=== PATIENT | male | born 1960 | race Caucasian/White ===

== ENCOUNTER 2019-06-16 10:30 | Outpatient (REF) | payer OTHER, SELFPAY ==
[2019-06-16 20:00] LABS: Anion Gap 8.3 mmol/L (3-11); BUN 14 mg/dL (7-18); CO2 28.7 mmol/L (21.0-32.0); CREATININE 1.12 mg/dL (0.70-1.30); Calculated LDL 100 mg/dL; Chloride 104 mmol/L (98-107); Cholesterol 161 mg/dL (50-200); Glucose 101 mg/dL (70-100); HDL Cholesterol 49 mg/dL (40-60); Potassium 4.4 mmol/L (3.5-5.1); Sodium 141 mmol/L (136-145); Triglyceride 60 mg/dL (30-150)
== END 2019-06-16 10:50 ==
LOC: NCHCN 10:30
PROVIDERS: PCP Family Medicine; Visit Provider Family Medicine
DX: I10 Essential (primary) hypertension (principal); Z00.00 Encounter for general adult medical examination without abnormal findings
CPT/HCPCS: 80048; 80061

== ENCOUNTER 2020-05-17 17:41 | Outpatient (REF) | payer OTHER, SELFPAY ==
[2020-05-17 18:45] LABS: Anion Gap 6.9 mmol/L (3-11); BUN 16 mg/dL (7-18); CO2 29.1 mmol/L (21.0-32.0); CREATININE 1.18 mg/dL (0.70-1.30); Chloride 103 mmol/L (98-107); Glucose 105 mg/dL (74-106); Potassium 4.5 mmol/L (3.5-5.1); Sodium 139 mmol/L (136-145)
== END 2020-05-17 18:01 ==
LOC: NCHCN 17:41
PROVIDERS: PCP Family Medicine; Visit Provider Family Medicine
DX: I10 Essential (primary) hypertension (principal)
CPT/HCPCS: 80048

== ENCOUNTER 2020-05-25 11:55 | Outpatient (CLI) | payer OTHER, SELFPAY ==
--- NOTE | 2020-05-25 10:24 | DI.RAD_ITS ---
EXAM: XR KNEE RT 3V AP,LAT,OLIVIER CLINICAL HISTORY: RT KNEE PAIN M25.561. TECHNIQUE: 2D digital imaging was performed. COMPARISON: No exams were available for comparison FINDINGS: BONES: No acute fracture is present. No bony destructive lesion is seen. JOINTS: The knee is normally aligned. No joint effusion is seen. SOFT TISSUE: Normal. IMPRESSION: Unremarkable radiographs of the right knee. DATA REPOSITORY: RADIATION DOSE DELIVERED:
== END 2020-05-25 12:15 ==
PROVIDERS: PCP Family Medicine; Visit Provider Family Medicine
DX: M25.561 Pain in right knee (principal)
CPT/HCPCS: 73562

== ENCOUNTER 2021-09-22 13:18 | Outpatient (REF) | payer OTHER, SELFPAY ==
[2021-09-22 15:17] LABS: Anion Gap 5.5 mmol/L (3-11); BUN 13 mg/dL (7-18); CO2 28.5 mmol/L (21.0-32.0); CREATININE 1.1 mg/dL (0.70-1.30); Calcium 9.1 mg/dL (8.5-10.1); Chloride 107 mmol/L (98-107); Glucose 94 mg/dL (74-106); Potassium 4.7 mmol/L (3.5-5.1); Sodium 141 mmol/L (136-145)
== END 2021-09-22 13:19 | disposition home or self-care (01) ==
LOC: NCHCN 13:18
PROVIDERS: PCP Family Medicine; Visit Provider Family Medicine
DX: Z00.00 Encounter for general adult medical examination without abnormal findings (principal); I10 Essential (primary) hypertension
CPT/HCPCS: 80048

== ENCOUNTER 2022-04-17 21:36 | Emergency (ER) | payer OTHER, SELFPAY ==
[2022-04-17] VITALS (17 sets, daily range): BP systolic 123–177; BP diastolic 79–96; PULSE 71–103; RESP 7–23; TEMP 36.7; O2SAT 98
--- NOTE | 2022-04-17 21:30 | RT.EKG_ITS ---
APPROVED REPORT Exam: Resting ECG Reason for Exam: chest pain Patient Location: E HR:101 bpm ECG Measurements Heart Rate 101 AXIS LA 214 P 55 QRSd 86 QRS 22 QT 341 T 41 QTc 442 Conclusion Sinus tachycardia...rate> 99 Borderline prolonged LA interval...LA >207, V-rate 91-120 Physician: no stemi, unchanged, Q wave in III unchanged
[2022-04-17] MEDS: Aspirin 81 MG CHEW 324 MG CH (22:08)
[2022-04-17 22:15] LABS: Abs Immature Grans 0.02 10^3/uL (0.0-0.06); Absolute Basophil Count 0.04 10^3/uL (0.0-0.2); Absolute Eosinophil Count 0.05 10^3/uL (0.0-0.7); Absolute Lymphocyte Count 2.28 10^3/uL (1.2-3.4); Absolute Monocyte Count 0.63 10^3/uL (0.1-0.8); Absolute Neutrophil Count 6.86 10^3/uL (1.2-6.7); Basophils % 0.4; Eosinophils % 0.5; HCT 41.8 % (40.0-50.0); HGB 14.9 g/dL (13.5-17.5); Immature Grans % 0.2; Lymphocytes % 23.1; MCHC 35.6 % (32.0-36.0); MCV 84 fL (80-95); MPV 9.7 fL (8.0-11.0); Monocytes % 6.4; Neutrophils % 69.4; Platelet Count 232 10^3/uL (130-400); RBC 4.97 10^6/uL (4.36-5.78); RDW 12.1 % (11.8-14.1); WBC 9.88 10^3/uL (4.4-10.8)
[2022-04-17 22:45] LABS: ALT 29 U/L (16-63); AST 23 U/L (15-37); Alkaline Phosphatase 77 U/L (46-116); Anion Gap 4.7 mmol/L (3-11); BUN 16 mg/dL (7-18); Bilirubin, Total 0.4 mg/dL (0.2-1.0); CO2 30.3 mmol/L (21.0-32.0); CREATININE 1.3 mg/dL (0.70-1.30); Calcium 8.8 mg/dL (8.5-10.1); Chloride 105 mmol/L (98-107); Estimated GFR 61.35 (mL/min/1.73m2); Glucose 155 mg/dL (74-106); NT-proBNP 96 pg/mL (<300); Potassium 3.7 mmol/L (3.5-5.1); Sodium 140 mmol/L (136-145); Total Protein 7.7 g/dL (6.4-8.2); Troponin I < 50 ng/L (<or=60)
--- NOTE | 2022-04-17 22:52 | W.ED.GENAD ---
Discharge Plan Disposition Patient Disposition: HOME Condition: Good Discharge Details Clinical Impression: Chest pain, Muscle spasm, Acid reflux Primary Care Provider: Alex Barahona ED Provider: Jordan Franz Home Meds and New Rx's Prescriptions: New pantoprazole [Protonix] 40 mg tablet,delayed release (DR/EC) 40 mg PO DAILY Qty: 30 0RF No Action acyclovir 15 GM ointment 15 gm Topical Q4H PRN PRNQty: 1 Label Comments: not using pravastatin 20 MG tablet 20 mg PO HS Qty: 90 Therapeutic Massage 1 hr Miscellaneous Monthly Qty: 1 12RF Rx Instructions: For stress reduction as part of medical management of high blood pressure losartan 50 mg Tablet 50 mg PO HS atenolol 25 mg Tablet 12.5 mg PO DAILY amlodipine 5 mg Tablet 5 mg PO HS Discharge Instructions Instructions: Chest Pain (ED), GERD (Gastroesophageal Reflux Disease) (ED), Muscle Spasm (ED) Additional Instructions: At this time your symptoms appear consistent with reflux, as well as a spasm in your back which may be related to reflux. Thankfully there is no evidence of significant cardiac abnormality on your work-up at this time. Please follow-up closely with your primary care provider Dr. Corea. Please take the Protonix as directed. Please get the massage that you normally do on your back for the spasm. Further discussion with Dr. Corea about a stress test would be beneficial. If you notice any worsening of your symptoms, or any new symptoms such as vomiting, diarrhea, fever, chills, shortness of breath, chest pain, numbness, weakness, or fainting , please return immediately to the emergency department for reevaluation. Please follow up with your primary care provider as soon as possible for reassessment and reevaluation. As always, it was a pleasure participating in your medical care today. Referrals: Alex Barahona [Primary Care Provider] - Medical Decision Making 62-year-old male with a past medical history of hypertension, high cholesterol, and family history of cardiac disease, who presents today for chest pain. Patient states that for the last 2 to 3 weeks he has had some achiness over his left back and chest. It is coming gone, it is sharp and achy when it occurs. It is nonexertional. It is improved by moving, exerting himself, and stretching. It does not appear to be worsened by anything. However today he noticed some increased reflux, and then his left shoulder started feeling slightly tingly. He denies any tearing or ripping sensation. He denies any trauma. He denies having symptoms like this otherwise in the past. He denies any other complaints at this time. No headache, no shortness of breath. He does admit to mild pain with deep breath. Denies PE risk factors such as recent long car rides, immobilization, recent surgery, prior history of DVT or PE, family history of PE or DVT, morbid obesity, exogenous estrogen and smoking, hemoptysis, history of cancer. No other complaints at this time. No other modifying factors. Exam demonstrates a well-appearing male. No evidence of significant distress. Mild tachycardia at 103 which is slightly unexpected. Exam of his back demonstrates a notable levator scapulae spasm. No other significant abnormality. That is seeming to be the location of his chest pain. No tenderness over the shoulders or arm. No focal neurologic deficits. Symptoms appear to unlikely to be ACS, however because of his risk factors we will evaluate for these. Screening EKG shows no evidence of STEMI or ACS or significant abnormality for that matter. PE is on the differential but less likely. We will get a D-dimer. Will monitor closely and treat with aspirin, and reassess. 12:42 AM On reassessment the patient's pain is resolved. He feels well. Chest x-ray is unremarkable, dimer is normal, troponin is normal, EKG is benign. No evidence of STEMI whatsoever. Symptoms appear consistent with GERD/reflux/muscle spasm, and appear inconsistent with PE ACS or dissection. However with the patient's history, and risk factors although they are low, I do feel that further discussion on a nonemergent basis for an outpatient stress test is reasonable with his PCP. Patient understands this. In the meantime we will start the patient on protonic, he does have a scheduled massage coming up, we discussed red flags which to return. Recommend avoidance of spicy foods. I have extensively reviewed the treatment plan and discharge instructions with the patient. I have addressed all patient concerns at this time. The patient was made aware of what symptoms to monitor for that would warrant a return to the emergency department. Discussed the plan with the patient, they demonstrate verbal understanding and agreement with our assessment and plan at this time. The documentation in this chart was dictated using [employer] dictation software. Please excuse any dictation errors. FINDINGS: Lungs: Unremarkable. No consolidation. Pleural spaces: Unremarkable. No pleural effusion. No pneumothorax. Heart/Mediastinum: Unremarkable. No cardiomegaly. Bones/joints: Unremarkable. IMPRESSION: No acute findings. Thank you for allowing us to participate in the care of your patient. Dictated and Authenticated by: Annie Joel MD 04/18/2022 12:12 AM Eastern Time ([place] & [place]) HPI General Date/Time Provider Initiated Documentation: 04/17/22 21:41. HPI Narrative: 62-year-old male with a past medical history of hypertension, high cholesterol, and family history of cardiac disease, who presents today for chest pain. Patient states that for the last 2 to 3 weeks he has had some achiness over his left back and chest. It is coming gone, it is sharp and achy when it occurs. It is nonexertional. It is improved by moving, exerting himself, and stretching. It does not appear to be worsened by anything. However today he noticed some increased reflux, and then his left shoulder started feeling slightly tingly. He denies any tearing or ripping sensation. He denies any trauma. He denies having symptoms like this otherwise in the past. He denies any other complaints at this time. No headache, no shortness of breath. He does admit to mild pain with deep breath. Denies PE risk factors such as recent long car rides, immobilization, recent surgery, prior history of DVT or PE, family history of PE or DVT, morbid obesity, exogenous estrogen and smoking, hemoptysis, history of cancer. No other complaints at this time. No other modifying factors. Related Data Home Medications Medication Instructions Recorded Confirmed acyclovir 5 % topical ointment 15 gm topical Q4H PRN PRN #1 tube 10/26/13 04/17/22 pravastatin 20 mg tablet 20 mg PO HS #90 tab-caps 11/10/15 04/17/22 amlodipine 5 mg tablet 5 mg PO HS 04/17/22 04/17/22 atenolol 25 mg tablet 12.5 mg PO DAILY 04/17/22 04/17/22 losartan 50 mg tablet 50 mg PO HS 04/17/22 04/17/22 pantoprazole 40 mg tablet,delayed 40 mg PO DAILY #30 tabs 04/18/22 release (Protonix) Previous Rx's Medication Instructions Recorded pantoprazole 40 mg tablet,delayed 40 mg PO DAILY #30 tabs 04/18/22 release (Protonix) Allergies Allergy/AdvReac Type Severity Reaction Status Date / Time lisinopril AdvReac Intermediate significant Unverified 04/17/22 22:11 arm pain animal dander Allergy Uncoded 04/17/22 22:11 General Stated Complaint: Chest Pain JUWAN: 3 Review of Systems All systems reviewed & are unremarkable except as noted in HPI and below PFSH All Active Problems (Updated 04/18/22 @ 00:38 by Jordan Franz DO) Chest pain (Acute) Muscle spasm (Acute) Acid reflux (Chronic) Chondromalacia patellae of right knee (Acute) Surgical History Colonoscopy - MAC Family History Mother Essential hypertension Father , CAD at age 67. Essential hypertension Heart disease CABG Myocardial infarction Brother Essential hypertension Heart disease Hyperlipidemia Brother No problems noted. Grandfather No problems noted. Grandfather No problems noted. Grandmother No problems noted. Grandmother No problems noted. Brother No problems noted. Social History Smoking/Tobacco Use Status: Never Smoking risk assessment performed?: Yes Drug use: Rarely Substance use type: marijuana Details: Edibles Do you feel safe in your relationship?: Yes Exam Narrative Exam Narrative: 1.Const: Well-nourished, Well-developed, appearing stated age 2.Eyes: PERRL, no conjunctival injection, and symmetrical lids. 3.ENT: Atraumatic external nose and ears. Moist MM. Neck: Symmetric, trachea midline, No thyromegaly. 4.CVS: +S1/S2, No murmurs or gallops. Peripheral pulses 2+ and equal in all extremities. Brisk capillary refill in all extremities. 5.RESP: Unlabored respiratory effort. Clear to auscultation bilaterally. No wheezes rales or rhonchi 6.GI: Soft, Nontender/Nondistended, No hepatosplenomegaly. No guarding or rebound. 7.MSK: Normocephalic/Atraumatic, Extremities w/o deformity or ttp No cyanosis or clubbing, Normal movement of all extremities. No calf tenderness 8.Skin: Warm, Dry. No rashes or lesions. 9.Neuro: dental biller II-XII grossly intact. Sensation grossly intact, no focal neurologic deficits. 10.Psych: (AAO) x3. Appropriate mood and affect Course Vital Signs Vital signs: Vital Signs Temperature 36.7 C 04/17/22 21:41 Pulse 103 H 04/17/22 21:41 Respiratory Rate 13 04/17/22 21:41 Blood Pressure 177/96 H 04/17/22 21:41 Pulse Oximetry 98 04/17/22 21:41 Temperature 36.7 C 04/17/22 21:41 Temperature Source Temporal Artery Scan 04/17/22 21:41 Pulse 103 H 04/17/22 21:41 Respiratory Rate 23 04/17/22 21:47 Respiratory Effort Non-Labored 04/17/22 21:47 Respiratory Depth Normal 04/17/22 21:47 Respiratory Pattern Normal 04/17/22 21:47 Blood Pressure 177/96 H 04/17/22 21:41 Blood Pressure Position Sitting 04/17/22 21:41 Pulse Oximetry 98 04/17/22 21:41 Oxygen Delivery Method Room Air 04/17/22 21:41 Oxygen Flow Rate 0 04/17/22 21:41 Lab/Test Results Lab/Test Results: Laboratory Tests Range/Units 04/17/22 04/17/22 22:10 22:10 WBC (4.4-10.8) 10^3/uL 9.88 RBC (4.36-5.78) 10^6/uL 4.97 Hgb (13.5-17.5) g/dL 14.9 Hct (40.0-50.0) % 41.8 MCV (80-95) fL 84 MCH (27.0-33.0) pg 30.0 MCHC (32.0-36.0) % 35.6 RDW (11.8-14.1) % 12.1 Plt Count (130-400) 10^3/uL 232 MPV (8.0-11.0) fL 9.7 Immature Gran % 0.2 Neutrophils % 69.4 Lymphocytes % 23.1 Monocytes % 6.4 Eosinophils % 0.5 Basophils % 0.4 Nucleated RBC % (0.0-0.3) % 0.0 Absolute Neutrophils (1.2-6.7) 10^3/uL 6.86 H Absolute Lymphocytes (1.2-3.4) 10^3/uL 2.28 Absolute Monocytes (0.1-0.8) 10^3/uL 0.63 Absolute Eosinophils (0.0-0.7) 10^3/uL 0.05 Absolute Basophils (0.0-0.2) 10^3/uL 0.04 Sodium (136-145) mmol/L 140 Potassium (3.5-5.1) mmol/L 3.7 Chloride (98-107) mmol/L 105 Carbon Dioxide (21.0-32.0) mmol/L 30.3 Anion Gap (3-11) mmol/L 4.7 BUN (7-18) mg/dL 16 Creatinine (0.70-1.30) mg/dL 1.3 Est GFR (CKD-EPI 2020) (mL/min/1.73m2) 61.35 Glucose (74-106) mg/dL 155 H Calcium (8.5-10.1) mg/dL 8.8 Total Bilirubin (0.2-1.0) mg/dL 0.4 AST (15-37) U/L 23 ALT (16-63) U/L 29 Alkaline Phosphatase (46-116) U/L 77 Troponin I (<or=60) ng/L < 50 NT-Pro-B Natriuret Pep (<300) pg/mL 96 Total Protein (6.4-8.2) g/dL 7.7 Albumin (3.4-5.0) g/dL 4.0 PAWSS Have you Been Recently Intoxicated or Drunk Within the Last 30 days?: No Have you Ever Experienced Previous Episodes of Alcohol Withdrawal?: No Have you ever Experienced Withdrawal Seizures?: No Have you ever Experienced Delirium Tremens(DT)s?: No Have you ever undergone Alcohol Rehabilitation Treatment (i.e, inpt ot outpatient treatment programs)?: No Have you ever Experienced Blackouts?: No Have you ever Combined Alcohol with other Downers within the last 90 days?: No Have you ever Combined Alcohol with any other Substance of Abuse during the last 90 days?: No Positive Blood Alcohol level on Presentation? [PCS.BAL]: Unable to Obtain Evidence of Increased Autonomic Activity (i.e. HR>120, tremor, sweating, agitation, nausea)?: No Result: 0 POCUS Exam (ED) Limited Cardiac Exam DATE OF EXAM: 04/17/22 TIME OF EXAM: 23:00 PROVIDER THAT PERFORMED THE STUDY: Jordan Franz IS THIS A REPEAT EXAM DURING THIS ENCOUNTER: no REASON FOR EXAM: Chest pain VISUALIZED STRUCTURES: Left atrium, Left ventricle, Right ventricle and Interventricular septum VIEW OBTAINED: Parasternal long-axis PERTINENT FINDINGS/IMPRESSION: No apparent abnormalities and Pericardial effusion (Trace pericardial effusion, high likelihood of fat pad potential); No LV dysfunction Exam complete
[2022-04-17 23:09] LABS: D-Dimer 326 ng/mlFEU (<500)
--- NOTE | 2022-04-17 23:15 | DI.RAD_ITS ---
Exam(s) XR PORTABLE CHEST AP EXAM: XR PORTABLE CHEST AP CLINICAL HISTORY: central chest pain TECHNIQUE: 2D digital imaging was performed of the chest. Two images were obtained. AP views were obtained. COMPARISON: No exams were available for comparison FINDINGS: MEDIASTINUM: Normal. HEART: Normal. PULMONARY VASCULATURE: Normal. LUNGS: Clear. PLEURAL SPACE: No pleural effusion or pneumothorax. BONE:Within normal limits for the patient's age. OTHER FINDINGS:Normal. IMPRESSION: No acute pulmonary findings. DATA REPOSITORY: RADIATION DOSE DELIVERED:
[2022-04-18] VITALS: BP 128/83; PULSE 74; PULSE 84; RESP 12
[2022-04-18 00:01] VITALS: PULSE 73; RESP 16
[2022-04-18 00:10] VITALS: PULSE 74; RESP 12
--- NOTE | 2022-04-18 00:13 | DI.VRAD_ITS ---
PROCEDURE INFORMATION: Exam: XR Chest Exam date and time: 04/17/2022 11:15 PM Age: 62 years old Clinical indication: Patient HX: Central chest pain TECHNIQUE: Imaging protocol: Radiologic exam of the chest. Views: 1 view. COMPARISON: No relevant prior studies available. FINDINGS: Lungs: Unremarkable. No consolidation. Pleural spaces: Unremarkable. No pleural effusion. No pneumothorax. Heart/Mediastinum: Unremarkable. No cardiomegaly. Bones/joints: Unremarkable. IMPRESSION: No acute findings. Dictated and Authenticated by: Annie Joel MD. Ordering:VICTORIANO Ortega MD
[2022-04-18 00:20] VITALS: PULSE 78; RESP 15
[2022-04-18] MEDS: Lidocaine 5% Patch 1 PATCH TP (00:23)
== END 2022-04-18 00:52 | disposition home or self-care (01) ==
PROVIDERS: Emergency Provider Student in an Organized Health Care Education/Training Program; PCP Family Medicine
DX: K21.9 Gastro-esophageal reflux disease without esophagitis (principal); M62.838 Other muscle spasm; I10 Essential (primary) hypertension
CPT/HCPCS: 80053; 93005; 93308; 99284; 71045; 83880; 84484; 85025; 85379; 93010

== ENCOUNTER 2023-01-19 20:42 | Inpatient (IN) | payer MEDICARE, BC, SELFPAY ==
--- NOTE | 2023-01-19 20:45 | DI.CT_ITS ---
Exam(s) CT ABDOMEN PELVIS W EXAM: CT ABDOMEN PELVIS W CLINICAL HISTORY: abd pain TECHNIQUE: Imaging Protocol: Axial computed tomography images with coronal and sagittal reformatted images were created and reviewed CONTRAST MATERIAL: Intravenous: Omnipaque 350 Contrast volume:100 mL Oral: No COMPARISON: CT RENAL COLIC WO CONTRAST from 05/29/2014 FINDINGS: ABDOMEN: Lung Bases: Normal where visualized. Coronary artery calcifications and/or stents are present. Liver: Normal density. No measurable mass. Portal, Superior Mesenteric, and Splenic Veins: Unremarkable. Gallbladder and Biliary Tract: No radiodense calculus or dilation. Pancreas: Normal density, no abnormal calcifications or inflammatory process. Spleen: Normal. Adrenals: No masses seen. Kidneys: Normal size, contour and axis. Nephrolithiasis. No hydronephrosis. No masses seen. Abdominal Aorta: Abdominal portion non-dilated. Atherosclerosis. Bowel: There is diverticulosis of the colon. There is bowel wall thickening seen in the mid sigmoid colon with pericolonic inflammatory changes consistent with acute diverticulitis. Extraluminal air i s seen around the inflamed bowel. Appendix is unremarkable. There is no evidence of bowel obstructio n. Peritoneal Cavity: There is a small amount of free fluid in the pelvis. Lymph Nodes: Within normal limits. Bones: Within normal limits for the patient's age. Soft Tissues: There is a fat containing left inguinal hernia. PELVIS: Bladder: Symmetric distention, no gross wall thickening. Reproductive Organs: The prostate gland is enlarged. Lymph Nodes: Within normal limits. Bones: Within normal limits for the patient's age. IMPRESSION: 1. Acute sigmoid diverticulitis with extraluminal air around the inflamed bowel which may represent m icro perforations. No abscess. 2. Small amount of free fluid in the pelvis. RADIATION DOSE DELIVERED: 950.88mGy.cm Total DLP DATA REPOSITORY: All CT scans at this facility are submitted to the National Radiology Data Registry (NRDR) Dose Index Registry (DIR) with the [employer] (A[employer]). RADIATION OPTIMIZATION: All CT scans at this facility use at least one of these dose optimization te chniques: automated exposure control; mA and/or kV adjustment per patient size (includes targeted exa ms where dose is matched to clinical indication); or iterative reconstruction.
[2023-01-19 20:47] VITALS: BP 164/99; PULSE 117; RESP 18; TEMP 36.9; O2SAT 98
--- NOTE | 2023-01-19 20:56 | ED.GENADUL_ITS ---
Discharge Plan Discharge Details Chief Complaint: Abd Prob Primary Care Provider: Alex Barahona ED Provider: Juvencio Franks Home Meds and New Rx's Prescriptions: No Action acyclovir 15 GM ointment 15 gm Topical Q4H PRN PRNQty: 1 Patient Comments: not using pravastatin 20 MG tablet 20 mg PO HS Qty: 90 Therapeutic Massage 1 hr Miscellaneous Monthly Qty: 1 12RF Rx Instructions: For stress reduction as part of medical management of high blood pressure losartan 50 mg Tablet 50 mg PO HS atenolol 25 mg Tablet 12.5 mg PO DAILY amlodipine 5 mg Tablet 5 mg PO HS pantoprazole [Protonix] 40 mg tablet,delayed release (DR/EC) 40 mg PO DAILY Qty: 30 0RF Medical Decision Making Patient presents with abdominal pain. Pain started 3 days ago. Patient was found to have discomfort on my exam. CT scan of the abdomen pelvis confirms that he has acute diverticulitis. There is a question of microperforation. Leukocytosis with left shift. Left the labs within normal limits. Patient was offered analgesic management and he opted to only have Tylenol. Case discussed Dr. Calixto. Patient will be admitted. Antibiotics ordered in the emergency department. Patient NPO. HPI General Date/Time Provider Initiated Documentation: 01/19/23 20:56 . HPI Narrative: States that he has been having lower abdominal pain since . States that it came all of a sudden. It is getting better. He got worried yesterday because he felt flushed but did not take his temperature. He had a second episode of feeling flushed today so he decided come to the emergency room for evaluation. No diarrhea. Maybe some mild constipation. No urinary symptoms. Related Data Home Medications Medication Instructions Recorded Confirmed acyclovir 5 % topical ointment 15 gm topical Q4H PRN PRN #1 tube 10/26/13 04/17/22 pravastatin 20 mg tablet 20 mg PO HS #90 tab-caps 11/10/15 04/17/22 amlodipine 5 mg tablet 5 mg PO HS 04/17/22 04/17/22 atenolol 25 mg tablet 12.5 mg PO DAILY 04/17/22 04/17/22 losartan 50 mg tablet 50 mg PO HS 04/17/22 04/17/22 pantoprazole 40 mg tablet,delayed 40 mg PO DAILY #30 tabs 04/18/22 release (Protonix) Previous Rx's Medication Instructions Recorded pantoprazole 40 mg tablet,delayed 40 mg PO DAILY #30 tabs 04/18/22 release (Protonix) Allergies Allergy/AdvReac Type Severity Reaction Status Date / Time lisinopril AdvReac Intermediate significant Unverified 04/17/22 22:11 arm pain animal dander Allergy Uncoded 04/17/22 22:11 General Stated Complaint: Abd Prob JUWAN: 3 Review of Systems Narrative: 10 point review of system is negative unless otherwise specified in the HPI PFSH All Active Problems (Updated 05/19/22 @ 00:01 by LILLIAN PRATT) Chondromalacia patellae of right knee (Acute) Surgical History Colonoscopy - MAC Family History Mother Essential hypertension Father , CAD at age 67. Essential hypertension Heart disease CABG Myocardial infarction Brother Essential hypertension Heart disease Hyperlipidemia Brother No problems noted. Grandfather No problems noted. Grandfather No problems noted. Grandmother No problems noted. Grandmother No problems noted. Brother No problems noted. Social History Smoking/Tobacco Use Status: Never Smoking risk assessment performed?: Yes Drug use: Rarely Substance use type: marijuana Details: Edibles Do you feel safe in your relationship?: Yes Exam Narrative Exam Narrative: Awake alert oriented 3, no acute distress pleasant cooperative PERRLA EOMI MMM No cephalic atraumatic Chest is clear to auscultation bilaterally. Heart regular rhythm and rate Abdomen. Soft nondistended mild bilateral lower quadrant discomfort. Skin no rashes Neuro grossly intact Back no CVAT Call normal affect Course Vital Signs Vital signs: Vital Signs Temperature 36.9 C 01/19/23 20:47 Pulse 117 H 01/19/23 20:47 Respiratory Rate 18 01/19/23 20:47 Blood Pressure 164/99 H 01/19/23 20:47 Pulse Oximetry 98 01/19/23 20:47 Temperature 36.9 C 01/19/23 20:47 Temperature Source Oral 01/19/23 20:47 Pulse 117 H 01/19/23 20:47 Respiratory Rate 18 01/19/23 20:47 Respiratory Effort Normal 01/19/23 20:54 Blood Pressure 164/99 H 01/19/23 20:47 Pulse Oximetry 98 01/19/23 20:47 Oxygen Delivery Method Room Air 01/19/23 20:47 Oxygen Flow Rate 0 01/19/23 20:47
[2023-01-19 21:15] LABS: Abs Immature Grans 0.05 10^3/uL (0.0-0.06); Absolute Basophil Count 0.04 10^3/uL (0.0-0.2); Absolute Eosinophil Count 0.04 10^3/uL (0.0-0.7); Absolute Lymphocyte Count 1.32 10^3/uL (1.2-3.4); Basophils % 0.3; Eosinophils % 0.3; HCT 42.3 % (40.0-50.0); HGB 14.7 g/dL (13.5-17.5); Immature Grans % 0.4; Lymphocytes % 10.3; MCH 29.2 pg (27.0-33.0); MCHC 34.8 % (32.0-36.0); MCV 84 fL (80-95); MPV 9.6 fL (8.0-11.0); Monocytes % 9.3; Neutrophils % 79.4; Platelet Count 213 10^3/uL (130-400); RBC 5.03 10^6/uL (4.36-5.78); RDW 12.3 % (11.8-14.1); RDW-SD 37.2 fL; WBC 12.85 10^3/uL (4.4-10.8)
[2023-01-19 21:20] VITALS: BP 149/90; PULSE 95; RESP 18; O2SAT 99
[2023-01-19] MEDS: Lactated Ringers 1,000 ML 1000 ML IV (21:21)
[2023-01-19 21:31] LABS: ALT 23 U/L (16-63); AST 15 U/L (15-37); Albumin 3.5 g/dL (3.4-5.0); Alkaline Phosphatase 83 U/L (46-116); Anion Gap 7.4 mmol/L (3-11); BUN 9 mg/dL (7-18); Bilirubin, Direct 0.2 mg/dL (0.0-0.2); Bilirubin, Total 0.7 mg/dL (0.2-1.0); CO2 27.6 mmol/L (21.0-32.0); CREATININE 1.2 mg/dL (0.70-1.30); Calcium 9.1 mg/dL (8.5-10.1); Chloride 102 mmol/L (98-107); Estimated GFR 67.11 (mL/min/1.73m2); Glucose 148 mg/dL (74-106); Lipase 30 U/L (16-77); Potassium 3.6 mmol/L (3.5-5.1); Sodium 137 mmol/L (136-145); Total Protein 7.9 g/dL (6.4-8.2)
[2023-01-19] MEDS: Omnipaque 350 MG/ML 100 ML BTL IJ (21:40)
[2023-01-19] MEDS: Normal Saline - Diluent 50 ML VIAL IJ (21:41)
[2023-01-19] MEDS: Normal Saline Flush 10 ML SYR IVP (21:42)
--- NOTE | 2023-01-19 21:45 | RT.EKG_ITS ---
APPROVED REPORT Exam: Resting ECG Reason for Exam: chest pain Patient Location: E HR:124 bpm ECG Measurements Heart Rate 124 AXIS TX 172 P 70 QRSd 86 QRS 32 QT 301 T 63 QTc 433 Conclusion Sinus tachycardia...rate> 99 Repol abnrm suggests ischemia, diffuse leads...ST-T neg, ant/lat/inf
[2023-01-19 21:47] LABS: Bilirubin Negative (Negative); Blood Small (Negative); Clarity Clear (Clear); Glucose Negative (Negative); Ketones Negative (Negative); Leukocyte Esterase Negative (Negative); Nitrite Negative (Negative); Specific Gravity 1.015 (1.005-1.025); pH 7.5 (5-8)
[2023-01-19 21:57] LABS: Bacteria Negative HPF (Negative); C & S Indicated? No; Casts Negative LPF (Negative); Crystals Negative HPF (Negative); Epithelial Cells Rare HPF (Negative); Mucus Negative (Negative); RBC 0-2 HPF (0-2); WBC Negative HPF (0-5)
--- NOTE | 2023-01-19 22:08 | NUR.NOTE ---
Nursing Note: Pt activated call light and stated, I do not feel well. Pt heart rate elevated, but pt denies CP. EKG conducted immediately and signed off by MD Franks.
[2023-01-19 22:10] VITALS: BP 164/94; PULSE 122; RESP 20; TEMP 36.7; O2SAT 99
--- NOTE | 2023-01-19 22:19 | DI.VRAD_ITS ---
Addendum created by Noah Carmona MD on 01/19/2023 10:24:23 PM EDT: Findings were discussed with Dr. Franz by phone consultation. Sigmoid diverticulitis with small focal perforation discussed. Initial report created on 01/19/2023 10:18:29 PM EDT: PROCEDURE INFORMATION: Exam: CT Abdomen And Pelvis With Contrast Exam date and time: 01/19/2023 9:44 PM Age: 63 years old Clinical indication: Abdominal pain; Acute TECHNIQUE: Imaging protocol: Computed tomography of the abdomen and pelvis with contrast. Radiation optimization: All CT scans at this facility use at least one of these dose optimization techniques: automated exposure control; mA and/or kV adjustment per patient size (includes targeted exams where dose is matched to clinical indication); or iterative reconstruction. Contrast material: OMNIPAQUE 350; Contrast volume: 100 ml; Contrast route: INTRAVENOUS (IV); COMPARISON: CR XR PORTABLE CHEST AP 04/17/2022 11:15 PM FINDINGS: Lungs: Lung bases are clear. Pleural spaces: No pleural effusion. Heart: Normal heart size. No pericardial effusion. Mild coronary artery atherosclerotic calcium is noted. Liver: Diffuse mild fatty liver infiltration. No focal hepatic pathology. Gallbladder and bile ducts: Normal. No calcified stones. No ductal dilation. Pancreas: Unremarkable. No ductal dilation. Spleen: The spleen is normal in size, contour and attenuation. Adrenal glands: Normal. No mass. Kidneys and ureters: Bilateral multifocal renal calculi. Ranging in size from 1 to 5 mm bilaterally. There is moderate left hydroureteronephrosis. There is no obstructing calculus. There is no distal mass. There is inflammation in the left hemipelvis related to diverticulitis. This could be having an effect on the left ureter motility. Recommend clinical correlation. Stomach and bowel: Gastric morphology is unremarkable. No edema. No gastric outlet obstruction. Small sliding hiatal hernia. No acute features. Small bowel loops are normal in course and caliber. There is no mucosal edema or bowel wall thickening. No obstructive features. Mid sigmoid colon with wall thickening and focal diverticulosis. Mildly inflamed superior diverticulum. There is a small focus of extraluminal air seen within the sigmoid mesocolon consistent with an early perforation. See series 4, image 64. See series 6, image 44. There is no contained abscess. Appendix: No evidence of appendicitis. Intraperitoneal space: There is minor free fluid in the pelvic cul-de-sac which is unremarkable in appearance by attenuation coefficient. No gross free air. Minor extraluminal free air within the sigmoid mesocolon adjacent to the focal diverticulitis. Vasculature: Atherosclerotic aortoiliac calcium without aneurysmal change. Lymph nodes: Unremarkable. No enlarged lymph nodes. Urinary bladder: Urinary bladder is unremarkable in appearance. No wall thickening. No intravesicular calculi. No intravesicular gas. Reproductive: Nonspecific moderate prostate enlargement. Recommend clinical correlation. Bones/joints: Degenerative thoracolumbar spine features. No acute changes. Soft tissues: Small fat containing left inguinal hernia. No acute change. IMPRESSION: 1. Mid sigmoid colon diverticulitis with a minor perforation. There is a small focus of extraluminal air in the sigmoid mesocolon. No abscess. No large bowel obstruction. 2. Minor free fluid in the pelvic cul-de-sac appearing simple by attenuation coefficient criteria. 3. Bilateral renal calculi. No obstructive calculus, however, there is mild left hydroureteronephrosis. This could be secondary to the proximity of the distal left ureter to the sigmoid colon inflammatory changes. No kranthi urothelial thickening or identified stricture. This adjacent inflammation might be causing dysmotility of the ureter. 4. Moderate prostatic enlargement. Recommend clinical correlation. 5. Small fat containing left inguinal hernia. No acute changes. 6. Atherosclerotic aortoiliac calcium. 7. Lung bases with features of mild COPD. Dictated and Authenticated by: Noah Carmona MD. Ordering:ALANA Henning MD
[2023-01-19] MEDS: metroNIDAZOLE 500 MG/100 ML BAG 100 MG IVPB (22:38)
[2023-01-19] MEDS: CIPROFLOXACIN 400 MG/200 ML BAG 200 MG IVPB (23:48)
[2023-01-19 23:59] VITALS: BP 117/64; PULSE 76; RESP 16; TEMP 36.3; O2SAT 99
[2023-01-20 00:03] VITALS: BP 132/86; PULSE 97; RESP 18; TEMP 37.7; O2SAT 95
[2023-01-20] MEDS: Acetaminophen 650 MG SUPP PR (00:30)
[2023-01-20] MEDS: Normal Saline Flush 10 ML SYR IVP (00:39)
[2023-01-20] MEDS: Normal Saline 1,000 ML 150 ML IV ×2 (01:08→07:47)
[2023-01-20 06:00] VITALS: BP 104/69; PULSE 70; RESP 18; TEMP 36.6; O2SAT 95
--- NOTE | 2023-01-20 09:53 | W.PM.HP.N ---
Date of service: 01/20/23 Time of Service: 10:35 Assessment and Plan Assessment and plan (1) Diverticulitis of large intestine with perforation: Status: Acute Assessment and plan: Mr. Golden is a pleasant 63 year old male who was admitted from the ER last night with sigmoid diverticlitis and contained perforation. I spend 30 minutes going over the pathophysiology of Diverticulitis and also reviewed the CT scan images with him. We discussed antibiotic therapy and dietary changes. I would like him to have at least 24 to 48 hours of IV antibiotics depending on his WBC count today. (Pending at this time). I will start him on clear liquids. His BP has been on the low side especially when he normally takes 3 medicines to control his HTN. I will continue to watch this. His Pulse is normal. He has not had his Beta preston yet today. I did write for his Home meds with parameters to hold if SBP <120 or P <70. Continue Flagyl and Cipro for now. Clear liquids Up ad miguel SL IV Hold off on Colonoscopy that was scheduled for this week Further recommendations once I have his CBC results from this am (2) Essential hypertension: Status: Acute History of Present Illness Consults Consult date: 01/19/23 Requesting physician: Juvencio Franks Narrative: Mr. Golden is a pleasant 63 year old male who developed acute abdominal pain on night which made it hard for him to sleep. He had no fevers or chills. No N/V. He came in to the ER last night with continued pain. Work-up revealed a leukocytosis. CT scan was done. I reviewed the CT scan myself. It showes sigmoid diverticulitis with contained perforation. The wall of the sigmoid colon is edematous. Patient states that he was constipated for the last months. His last colonoscopy and upper endoscopy have been done at [facility] [place]. His last one was 11 or 12 years ago and was normal. He is scheduled for a colonoscopy this coming week. He is passing flatus intermittently. No BM since he was admitted. VSS overnight and he has been afebrile. I showed the patient his CT scan and showed him the diverticulitis and edema. Review of Systems Constitutional Constitutional: Denies fatigue, Denies fever(s), Denies headache(s), Denies night sweats, Denies poor appetite and Denies weight loss Eyes Eyes: Denies change in vision ENT Ears, Nose, Mouth, and Throat: Denies dysphagia, Denies headache(s) and Denies hoarseness Cardiovascular Cardiovascular: Denies chest pain, Denies chest pain at rest, Denies irregular heart rhythm, Denies palpitations, Denies dyspnea and Denies dyspnea on exertion Respiratory Respiratory: Denies cough, Denies dyspnea and Denies dyspnea on exertion Gastrointestinal Gastrointestinal: Reports as per HPI and Denies dysphagia Genitourinary Genitourinary: Reports system reviewed and no additional complaints, except as documented Musculoskeletal Musculoskeletal: Reports system reviewed and no additional complaints, except as documented Integumentary/Breasts Skin/Breast: Reports system reviewed and no additional complaints, except as documented Neurologic Neurologic: Reports system reviewed and no additional complaints, except as documented and Denies headache(s) Psychiatric Psychiatric: Reports system reviewed and no additional complaints, except as documented Endocrine Endocrine: Reports system reviewed and no additional complaints, except as documented, Denies fatigue and Denies palpitations Hematologic/Lymphatic Hematologic/Lymphatic: Reports system reviewed and no additional complaints, except as documented Allergic/Immunologic Allergic/Immunologic: Reports system reviewed and no additional complaints, except as documented PFSH All Active Problems (Updated 01/20/23 @ 10:45 by Krystle Calixto MD) Diverticulitis of large intestine with perforation (Acute) Hyperlipidemia (Acute 09/29/15) Essential hypertension (Acute 05/06/13) 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 Essential hypertension Heart disease CABG Myocardial infarction Brother Essential hypertension Heart disease Hyperlipidemia Brother No problems noted. Grandfather No problems noted. Grandfather No problems noted. Grandmother No problems noted. Grandmother No problems noted. Brother No problems noted. Social History Smoking/Tobacco Use Status: Never Smoking risk assessment performed?: Yes Drug use: Rarely Substance use type: marijuana Details: Edibles Do you feel safe in your relationship?: Yes Meds Allergies and Home Medications Allergies Allergy/AdvReac Type Severity Reaction Status Date / Time lisinopril AdvReac Intermediate significant Unverified 04/17/22 22:11 arm pain animal dander Allergy Uncoded 04/17/22 22:11 Home Medications Medication Instructions Recorded Confirmed Type pravastatin 20 mg tablet 20 mg PO HS #90 tab-caps 11/10/15 01/20/23 History amlodipine 5 mg tablet 5 mg PO HS 04/17/22 01/20/23 History atenolol 25 mg tablet 12.5 mg PO DAILY 04/17/22 01/20/23 History losartan 50 mg tablet 50 mg PO HS 04/17/22 01/20/23 History pantoprazole 40 mg tablet,delayed 40 mg PO HS 01/20/23 01/20/23 History release (Protonix) Exam Const General: comfortable and no acute distress Nutritional Appearance: average body habitus Orientation: alert and oriented x3 HENMT Head: normocephalic and atraumatic Resp Effort & Inspection: normal respiratory effort Auscultation: clear to auscultation bilaterally Cardio Rate: regular rate Rhythm: regular rhythm GI Inspection: normal to inspection Palpation: soft, no hepatosplenomegaly and nontender (LLQ and suprapubic, no guarding or rebound) Auscultation: normal bowel sounds General: deferred Results Imaging Abdomen CT scan report/results: report reviewed and image reviewed CT scan - pelvis: report reviewed and image reviewed Labs 01/19/23 21:00 01/19/23 21:00 Labs: Laboratory Results - last 24 hr 01/19/23 01/19/23 01/19/23 21:00 21:00 21:40 WBC 12.85 H RBC 5.03 Hgb 14.7 Hct 42.3 MCV 84 MCH 29.2 MCHC 34.8 RDW 12.3 Plt Count 213 MPV 9.6 Immature Gran % 0.4 Neutrophils % 79.4 Lymphocytes % 10.3 Monocytes % 9.3 Eosinophils % 0.3 Basophils % 0.3 Nucleated RBC % 0.0 Absolute Neutrophils 10.20 H Absolute Lymphocytes 1.32 Absolute Monocytes 1.20 H Absolute Eosinophils 0.04 Absolute Basophils 0.04 Sodium 137 Potassium 3.6 Chloride 102 Carbon Dioxide 27.6 Anion Gap 7.4 BUN 9 Creatinine 1.2 Est GFR (CKD-EPI 2020) 67.11 Glucose 148 H Calcium 9.1 Magnesium 2.0 Total Bilirubin 0.7 Conjugated Bilirubin 0.2 AST 15 ALT 23 Alkaline Phosphatase 83 Total Protein 7.9 Albumin 3.5 Lipase 30 Urine Color Yellow Urine Clarity Clear Urine pH 7.5 Ur Specific [place] 1.015 Urine Protein Trace H Urine Ketones Negative Urine Blood Small H Urine Nitrite Negative Urine Bilirubin Negative Urine Urobilinogen 1.0 H Ur Leukocyte Esterase Negative Urine RBC 0-2 Urine WBC Negative Ur Epithelial Cells Rare Urine Crystals Negative Urine Bacteria Negative Urine Casts Negative Urine Mucus Negative Ur Culture Indicated? No Urine Glucose Negative Last Vital Signs Temp 97.9 F 01/20/23 06:00 Pulse 70 01/20/23 06:00 Resp 18 01/20/23 06:00 BP 104/69 01/20/23 06:00 Pulse Ox 95 01/20/23 06:00 Time Spent Time spent with Patient: 40-54 minutes Time was spent: preparing to see the patient(eg.review tests), obtaining and/or reviewing separately otained hiistory, ordering medications,tests, procedures, indepentently interpreting results and counseling the patient
[2023-01-20] MEDS: metroNIDAZOLE 500 MG/100 ML BAG 100 MG IVPB ×2 (10:33→17:20)
[2023-01-20 10:42] LABS: Abs Immature Grans 0.03 10^3/uL (0.0-0.06); Absolute Basophil Count 0.04 10^3/uL (0.0-0.2); Absolute Lymphocyte Count 1.61 10^3/uL (1.2-3.4); Absolute Monocyte Count 0.83 10^3/uL (0.1-0.8); Absolute Neutrophil Count 6.72 10^3/uL (1.2-6.7); Basophils % 0.4; Eosinophils % 1.1; HCT 38.4 % (40.0-50.0); HGB 13.4 g/dL (13.5-17.5); Immature Grans % 0.3; Lymphocytes % 17.3; MCH 29.8 pg (27.0-33.0); MCHC 34.9 % (32.0-36.0); MCV 86 fL (80-95); MPV 9.5 fL (8.0-11.0); Monocytes % 8.9; Platelet Count 189 10^3/uL (130-400); RBC 4.49 10^6/uL (4.36-5.78); RDW 12.4 % (11.8-14.1); WBC 9.33 10^3/uL (4.4-10.8)
--- NOTE | 2023-01-20 11:29 | PDOC.CMIN ---
Date of service: 01/20/23 Time of Service: 11:29 Care Management Initial Assmt Initial Assessment REASON FOR HOSPITALIZATION:: Diverticulitis PREVIOUS FUNCTIONAL STATUS/SOCIAL/FAMILY SUPPORTS:: Manan lives in [place] with his , Windy. 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 When not working, he enjoys playing golf and traveling. He is a [place] and has several friends and family in the area who provide support when needed. Manan drives and is independent with his ADLs at baseline. CURRENT FUNCTIONAL STATUS:: Manan is sitting up in bed when CM comes to meet with him. His Windy is present in the room. He states he is feeling much better today and is looking forward to returning home. He acknowledges the need to make some diet changes to avoid diverticulitis flare-ups. ADVANCE DIRECTIVES:: None on file but Manan believes he has one at [facility]. Has patient been provided with info about the portal/API?: Yes Did the patient sign up for the portal?: Yes CODE STATUS:: Full Code INSURANCE COVERAGE / FINANCIAL ISSUES:: [place] of [place] Supp[place] and Medicare. CURRENT HOME/COMMUNITY SERVICES/EQUIPMENT:: None. PRIMARY CARE PHYSICIAN:: Alex Barahona MD POTENTIAL DISCHARGE NEEDS:: Follow up appointment with PCP. PATIENT/FAMILY EDUCATION NEEDS:: Review of discharge instructions including medications, limitations and follow up plan of care; discuss Ask Me Three and self management. ANTICIPATED BARRIERS TO DISCHARGE:: None. TRANSPORTATION:: Via private vehicle with spouse. PLAN:: Manan will be discharged home with no services when medically cleared by provider. He will follow up with his PCP and plan of care as instructed. He will be transported home by his via private vehicle when ready. CM will continue to follow. 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 Essential hypertension Heart disease CABG Myocardial infarction Brother Essential hypertension Heart disease Hyperlipidemia Brother No problems noted. Grandfather No problems noted. Grandfather No problems noted. Grandmother No problems noted. Grandmother No problems noted. Brother No problems noted. Social History Smoking/Tobacco Use Status: Never Smoking risk assessment performed?: Yes Drug use: Rarely Substance use type: marijuana Details: Edibles Do you feel safe in your relationship?: Yes
--- NOTE | 2023-01-20 13:37 | DSE_ITS ---
Date of service: 01/20/23 Time of Service: 13:38 DS: Diagnosis Discharge Diagnosis (1) Diverticulitis of large intestine with perforation: Status: Acute (2) Essential hypertension: Status: Acute Discharge Plan Disposition Patient Disposition: Home Condition: Improving Discharge Details Reason For Visit: diverticulitis Admit Date/Time: 01/19/23 22:46 Admit Provider: Krystle Calixto Attending Provider: Krystle Calixto Primary Care Provider: Alex Barahona [facility] Course Hospital Course: Mr. Golden is a pleasant 63 year old male admitted with diverticulitis and contained perforation. He has been doing well. Pain is minimal. He is passing flatus. he is tolerating clear liquids. Leukocytosis has resolved. He is afebrile. BPs are normal. Patient wishes to go home. Discussed with him signs and symptoms of worseing infection for which he needs to come back to the ER. We discussed diet- 24 hours of clear lqiuids then advance as tolerated to a soft, low fiber diet for next 2 weeks Low acid diet as well for his worsening reflux. Miralax daily for constipation ABx for 10 days Tylenol or ibuprofen for pain Home Meds and New Rx's Prescriptions: New ciprofloxacin HCl [Cipro] 500 mg tablet 500 mg PO BID Qty: 20 0RF metronidazole 500 mg tablet 500 mg PO TID 10 Days Qty: 30 0RF polyethylene glycol 3350 [Miralax] 17 gram powder in packet 17 g PO DAILY Qty: 30 0RF Continued pravastatin 20 MG tablet 20 mg PO HS Qty: 90 losartan 50 mg Tablet 50 mg PO HS atenolol 25 mg Tablet 12.5 mg PO DAILY amlodipine 5 mg Tablet 5 mg PO HS pantoprazole [Protonix] 40 mg tablet,delayed release (DR/EC) 40 mg PO HS Discharge Instructions Instructions: Diverticulitis (GEN), Low Fiber Diet (DC), Clear Liquid Diet (GEN) Additional Instructions: Activity at Home after surgery: 1. As tolerated Diet, Nutrition, & wound healin. Clear liquid diet for 24 hours (see print out) 2. Low fiber diet for 2 weeks (until you see me in the office) Pain Medications: 1. Tylenol 650mg every 6 hours as needed and Ibuprofen 600 mg every 6 hours as needed. You may alternate between the 2 medications every 3 hours For Constipation: 1. MiraLax as needed for constipation Other: 1. For your increase in reflux- try increasing the pantoprazole to 40 mg daily again and eat a low acid diet Do not eat or drink within 2 hours of going to bed Please call our office if you develop: 1. Fevers >101.5 2. Nausea or Vomiting 3. Worsening pain 4. Low blood pressure If after hours please call the Hospital at and ask to speak to the on-call surgeon Referrals: Krystle Calixto MD [ [facility] STAFF PHYSICIAN] - 02/04/23 9:30 am Activity:: Activity as Tolerated Equipment/Supplies:: No Equipment Needed Diet:: see above DS: Summary Time Spent with Patient providing and/or coordinating discharge services: Greater than 30 minutes Specific discharge activities: reviewing diet, medications Status at Discharge Functional status at discharge: independent ambulation Overall status at discharge: patient is progressing back to baseline Mental Status: mental status grossly normal Speech and Movement: speech and movement normal Mood: congruent mood Affect: normal affect Exam GI Palpation: soft, no hepatosplenomegaly and tender (LLQ, no guarding or rebound) Psych Mental Status: mental status grossly normal Speech and Movement: speech and movement normal Mood: congruent mood Affect: normal affect DS: Data Vitals/I&O Vitals and I&O: Vital Signs Temperature 97.9 F 01/20/23 06:00 Temperature Source Tympanic 01/20/23 06:00 Pulse 70 01/20/23 06:00 Pulse Rhythm Regular 01/20/23 09:16 Respiratory Rate 18 01/20/23 06:00 Respiratory Effort Normal 01/20/23 09:16 Respiratory Depth Normal 01/20/23 09:16 Respiratory Pattern Normal 01/20/23 09:16 Blood Pressure 104/69 01/20/23 06:00 Pulse Oximetry 95 01/20/23 06:00 Oxygen Delivery Method Room Air 01/20/23 06:00 Oxygen Flow Rate 0 01/20/23 06:00 Pain Level 4 01/20/23 00:55 Intake & Output 01/19/23 01/20/23 01/20/23 23:59 11:59 23:59 Intake Total 1100 / 1100 1457.5 / 1457.5 Output Total 675 / 675 Balance 1100 / 1100 782.5 / 782.5 Weight 197 lb 195 lb 4.8 oz Intake: IV 1100 / 1100 1207.5 / 1207.5 Oral 250 / 250 Output: Urine 675 / 675 Other: Urine Color Yellow Urine Appearance Clear Voiding Methods Toilet Data Completed and Pending Labs on day of discharge: Labs from last 24 hours 01/20/23 01/19/23 01/19/23 10:30 21:40 21:00 WBC 9.33 12.85 H RBC 4.49 5.03 Hgb 13.4 L 14.7 Hct 38.4 L 42.3 MCV 86 84 MCH 29.8 29.2 MCHC 34.9 34.8 RDW 12.4 12.3 Plt Count 189 213 MPV 9.5 9.6 Immature Gran % 0.3 0.4 Neutrophils % 72.0 79.4 Lymphocytes % 17.3 10.3 Monocytes % 8.9 9.3 Eosinophils % 1.1 0.3 Basophils % 0.4 0.3 Nucleated RBC % 0.0 0.0 Absolute Neutrophils 6.72 H 10.20 H Absolute Lymphocytes 1.61 1.32 Absolute Monocytes 0.83 H 1.20 H Absolute Eosinophils 0.10 0.04 Absolute Basophils 0.04 0.04 Sodium Potassium Chloride Carbon Dioxide Anion Gap BUN Creatinine Est GFR (CKD-EPI 2020) Glucose Calcium Magnesium Total Bilirubin Conjugated Bilirubin AST ALT Alkaline Phosphatase Total Protein Albumin Lipase Urine Color Yellow Urine Clarity Clear Urine pH 7.5 Ur Specific [place] 1.015 Urine Protein Trace H Urine Ketones Negative Urine Blood Small H Urine Nitrite Negative Urine Bilirubin Negative Urine Urobilinogen 1.0 H Ur Leukocyte Esterase Negative Urine RBC 0-2 Urine WBC Negative Ur Epithelial Cells Rare Urine Crystals Negative Urine Bacteria Negative Urine Casts Negative Urine Mucus Negative Ur Culture Indicated? No Urine Glucose Negative 01/19/23 21:00 WBC RBC Hgb Hct MCV MCH MCHC RDW Plt Count MPV Immature Gran % Neutrophils % Lymphocytes % Monocytes % Eosinophils % Basophils % Nucleated RBC % Absolute Neutrophils Absolute Lymphocytes Absolute Monocytes Absolute Eosinophils Absolute Basophils Sodium 137 Potassium 3.6 Chloride 102 Carbon Dioxide 27.6 Anion Gap 7.4 BUN 9 Creatinine 1.2 Est GFR (CKD-EPI 2020) 67.11 Glucose 148 H Calcium 9.1 Magnesium 2.0 Total Bilirubin 0.7 Conjugated Bilirubin 0.2 AST 15 ALT 23 Alkaline Phosphatase 83 Total Protein 7.9 Albumin 3.5 Lipase 30 Urine Color Urine Clarity Urine pH Ur Specific [place] Urine Protein Urine Ketones Urine Blood Urine Nitrite Urine Bilirubin Urine Urobilinogen Ur Leukocyte Esterase Urine RBC Urine WBC Ur Epithelial Cells Urine Crystals Urine Bacteria Urine Casts Urine Mucus Ur Culture Indicated? 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 Essential hypertension Heart disease CABG Myocardial infarction Brother Essential hypertension Heart disease Hyperlipidemia Brother No problems noted. Grandfather No problems noted. Grandfather No problems noted. Grandmother No problems noted. Grandmother No problems noted. Brother No problems noted. Social History Smoking/Tobacco Use Status: Never Smoking risk assessment performed?: Yes Drug use: Rarely Substance use type: marijuana Details: Edibles Do you feel safe in your relationship?: Yes Time Spent with Patient Time Spent with Patient: <45 minutes Time was spent: preparing to see the patient(eg.review tests), ordering medications,tests, procedures and counseling the patient
[2023-01-20 15:32] VITALS: BP 125/85; PULSE 84; RESP 18; TEMP 37; O2SAT 96
[2023-01-20] MEDS: CIPROFLOXACIN 400 MG/200 ML BAG 200 MG IVPB (16:07)
== END 2023-01-20 18:34 | disposition home or self-care (01) | DRG 392 ==
LOC: ER 21:00 → MS 23:53
PROVIDERS: Admitting Provider Surgery; Emergency Provider Emergency Medicine; PCP Family Medicine; Visit Provider Surgery
DX: K57.20 Diverticulitis of large intestine with perforation and abscess without bleeding (principal); I10 Essential (primary) hypertension; D72.829 Elevated white blood cell count, unspecified; F12.90 Cannabis use, unspecified, uncomplicated; E78.5 Hyperlipidemia, unspecified; F43.22 Adjustment disorder with anxiety; M22.41 Chondromalacia patellae, right knee; K22.70 Barrett's esophagus without dysplasia
CPT/HCPCS: 36415; 80053; 80076; 83690; 93005; 99223; 99239; 74177; 81003; 81015; 83735; 85025; 93010; J0744; J3490

== ENCOUNTER → 2023-01-29 09:31 | Outpatient (BNVA) | payer MEDICARE, BC, SELFPAY | PROVIDERS: PCP Family Medicine; Referring Provider Family Medicine; Visit Provider Surgery | DX: K57.20 Diverticulitis of large intestine with perforation and abscess without bleeding (principal) | CPT/HCPCS: 99212; 99213 ==

== ENCOUNTER 2023-09-19 17:32 | Outpatient (REF) | payer MEDICARE, BC, SELFPAY ==
[2023-09-19 19:02] LABS: Anion Gap 8.5 mmol/L (3-11); BUN 17 mg/dL (7-18); CO2 29.5 mmol/L (21.0-32.0); CREATININE 1.3 mg/dL (0.70-1.30); Calcium 9.4 mg/dL (8.5-10.1); Calculated LDL 116 mg/dL (<100); Chloride 103 mmol/L (98-107); Cholesterol 199 mg/dL (<200); Estimated GFR 60.96 (mL/min/1.73m2); Glucose 86 mg/dL (74-106); HDL Cholesterol 60 mg/dL (40-60); Sodium 141 mmol/L (136-145); Triglyceride 118 mg/dL (<150)
== END 2023-09-19 17:33 | disposition home or self-care (01) ==
LOC: NCHCN 17:32
PROVIDERS: PCP Family Medicine; Visit Provider Family Medicine
DX: I10 Essential (primary) hypertension (principal)
CPT/HCPCS: 80048; 80061

== ENCOUNTER 2023-10-16 15:01 | Outpatient (CLI) | payer MEDICARE, BC, SELFPAY ==
--- NOTE | 2023-10-16 13:15 | DI.RAD_ITS ---
Exam(s) XR HAND RT LIMITED EXAM: XR HAND RT LIMITED CLINICAL HISTORY: pain at base of thumb. TECHNIQUE: 2D digital imaging was performed. Two views. COMPARISON: CR RIGHT HAND COMPLETE from 11/11/2015 FINDINGS: BONES: No acute fracture is present. No bony destructive lesion is seen. JOINTS: No dislocation or subluxation present. There are degenerative changes at the scaphoid trapez ium- trapezoid joint. There is loss of the joint space, mild periarticular spurring and sclerosis. A cyst is again noted in the scaphoid. There has been some progression of the degenerative change fr om the previous exam. SOFT TISSUE: Normal. 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 DATA REPOSITORY: RADIATION DOSE DELIVERED:
== END 2023-10-16 15:02 | disposition home or self-care (01) ==
LOC: DIORS 15:02
PROVIDERS: PCP Family Medicine; Referring Provider Family Medicine; Visit Provider Physician Assistant
DX: G56.01 Carpal tunnel syndrome, right upper limb; M19.031 Primary osteoarthritis, right wrist
CPT/HCPCS: 99213; 73120

== ENCOUNTER 2023-10-25 09:19 | Emergency (ER) | payer MEDICARE, BC, SELFPAY ==
[2023-10-25] VITALS (12 sets, daily range): BP systolic 137–173; BP diastolic 74–101; PULSE 68–83; RESP 20; TEMP 36.5; O2SAT 96–99
[2023-10-25] MEDS: Ondansetron 4 MG/2 ML VIAL IVP (09:34)
[2023-10-25] MEDS: Lactated Ringers 500 ML 1000 ML IV (09:38)
[2023-10-25 09:40] LABS: Lactate 1.4 mmol/L (0.6-1.4)
[2023-10-25 09:42] LABS: Abs Immature Grans 0.01 10^3/uL (0.0-0.06); Absolute Basophil Count 0.04 10^3/uL (0.0-0.2); Absolute Eosinophil Count 0.08 10^3/uL (0.0-0.7); Absolute Lymphocyte Count 1.74 10^3/uL (1.2-3.4); Absolute Monocyte Count 0.53 10^3/uL (0.1-0.8); Absolute Neutrophil Count 4.08 10^3/uL (1.2-6.7); Basophils % 0.6; Eosinophils % 1.2; HCT 47.2 % (40.0-50.0); HGB 16.3 g/dL (13.5-17.5); Immature Grans % 0.2; Lymphocytes % 26.9; MCH 29.4 pg (27.0-33.0); MCHC 34.5 % (32.0-36.0); MCV 85 fL (80-95); MPV 9.3 fL (8.0-11.0); Monocytes % 8.2; Neutrophils % 62.9; Platelet Count 260 10^3/uL (130-400); RBC 5.55 10^6/uL (4.36-5.78); RDW 11.9 % (11.8-14.1); RDW-SD 36.9 fL; WBC 6.48 10^3/uL (4.4-10.8)
--- NOTE | 2023-10-25 09:45 | RT.EKG_ITS ---
APPROVED REPORT Exam: Resting ECG Reason for Exam: chest pain Patient Location: E HR:74 bpm ECG Measurements Heart Rate 74 AXIS IA 186 P 74 QRSd 86 QRS 64 QT 383 T 29 QTc 425 Conclusion Sinus rhythm...normal P axis, V-rate 60- 99
--- NOTE | 2023-10-25 09:53 | ED.GENADUL_ITS ---
Discharge Plan Disposition Patient Disposition: Home Condition: Stable Discharge Details Clinical Impression: Acute diverticulitis Primary Care Provider: Alex Barahona ED Provider: Mark Pat Home Meds and New Rx's Prescriptions: New amoxicillin-pot clavulanate 875-125 mg tablet 1 tab PO BID Qty: 19 0RF ondansetron 4 mg tablet,disintegrating 4 mg PO Q8H PRN (Reason: nausea and vomiting) Qty: 10 0RF Continued pantoprazole 20 mg tablet,delayed release (DR/EC) 20 mg PO DAILY pravastatin 20 MG tablet 20 mg PO HS Qty: 90 losartan 50 mg Tablet 50 mg PO HS amlodipine 5 mg Tablet 5 mg PO HS atenolol 25 mg tablet 25 mg PO DAILY polyethylene glycol 3350 [Miralax] 17 gram powder in packet 17 g PO DAILY Qty: 30 0RF Discharge Instructions Instructions: Diverticulitis (ED) Additional Instructions: You have been started on an oral antibiotic called Augmentin. You were given the initial dose here in the emergency permit. Your next dose should be tonight. Please continue full course of antibiotic as prescribed. Please maintain a clear liquid diet today. You may advance your diet to bland food like rice and chicken soup tomorrow. Advance slowly thereafter as tolerated. Please contact your primary care physician to arrange follow-up. Return to the ER immediately for any worsening or new concerning symptoms. Referrals: Alex Barahona [Primary Care Provider] - [facility] General Mode of arrival: ambulatory . Date/Time Provider Initiated Documentation: 10/25/23 09:29 . Limitations to Documentation: no limitations . Information obtained by: patient . HPI Narrative: 63-year-old male with history of diverticulosis, diverticulitis with perforation noted, hyperlipidemia, hypertension, presents with chief complaint of dizziness. Patient notes over the past 1 week he has been experiencing waxing and waning abdominal discomfort. He states he has abdominal discomfort that comes in waves with associated nausea. No vomiting. He did change his diet to soft foods and thinks this may have helped minimally. He denies associated melena or bright red blood per rectum. Normal bowel movements. Today he was standing from a seated position and suddenly felt lightheaded like he was going to pass out. Symptoms improved after few minutes with sitting down. Dizziness has since resolved. He has no associated chest pain or shortness of breath. Patient did have a upper endoscopy and colonoscopy that were nondiagnostic in June. Related Data Home Medications Medication Instructions Recorded Confirmed pravastatin 20 mg tablet 20 mg PO HS #90 tab-caps 11/10/15 10/25/23 amlodipine 5 mg tablet 5 mg PO HS 04/17/22 10/25/23 losartan 50 mg tablet 50 mg PO HS 04/17/22 10/25/23 polyethylene glycol 3350 17 gram 17 g PO DAILY #30 ea 01/20/23 10/25/23 oral powder packet (Miralax) pantoprazole 20 mg tablet,delayed 20 mg PO DAILY 01/29/23 10/25/23 release atenolol 25 mg tablet 25 mg PO DAILY 10/16/23 10/25/23 amoxicillin 875 mg-potassium 1 tab PO BID #19 tabs 10/25/23 clavulanate 125 mg tablet ondansetron 4 mg disintegrating 4 mg PO Q8H PRN nausea and 10/25/23 tablet vomiting #10 tabs Previous Rx's Medication Instructions Recorded polyethylene glycol 3350 17 gram 17 g PO DAILY #30 ea 01/20/23 oral powder packet (Miralax) amoxicillin 875 mg-potassium 1 tab PO BID #19 tabs 10/25/23 clavulanate 125 mg tablet ondansetron 4 mg disintegrating 4 mg PO Q8H PRN nausea and 10/25/23 tablet vomiting #10 tabs Allergies Allergy/AdvReac Type Severity Reaction Status Date / Time lisinopril AdvReac Intermediate significant Unverified 10/25/23 09:31 arm pain animal dander Allergy Other (See Uncoded 10/25/23 09:31 Comment) General Stated Complaint: Abd Prob JUWAN: 3 Review of Systems All systems reviewed & are unremarkable except as noted in HPI and below Constitutional Constitutional: Denies fever(s) Gastrointestinal Gastrointestinal: Reports as per HPI Genitourinary Genitourinary: Denies difficulty urinating and Denies dysuria Exam Const General: cooperative and no acute distress HENMT Mouth: mucous membranes dry Eyes Conjunctivae: normal conjunctivae Sclera: normal sclerae EOM: EOM intact bilaterally Neck Neck: trachea midline and supple Resp Auscultation: clear to auscultation bilaterally, no rales, no rhonchi and no wheezes Cardio Jugular venous pressure: no JVD Rate: regular rate and not tachycardic Rhythm: regular rhythm GI Palpation: soft, not firm, no guarding, no masses, not rigid and tender (Mild tenderness on palpation of epigastrium) with no rebound tenderness Skin General skin exam: no rashes or lesions noted Neuro General: patient alert, patient awake, patient oriented x3 and tone normal Extrem General: no edema Psych Appearance: grossly normal Mental Status: mental status grossly normal Speech and Movement: speech and movement normal Course Vital Signs Vital signs: Vital Signs Temperature 36.5 C 10/25/23 09:22 Pulse 79 10/25/23 09:22 Respiratory Rate 20 10/25/23 09:22 Blood Pressure 173/101 H 10/25/23 09:22 Pulse Oximetry 97 10/25/23 09:22 Temperature 36.5 C 10/25/23 09:22 Temperature Source Oral 10/25/23 09:22 Pulse 79 10/25/23 09:22 Respiratory Rate 20 10/25/23 09:22 Respiratory Effort Normal 10/25/23 09:25 Blood Pressure 173/101 H 10/25/23 09:22 Blood Pressure Position Supine 10/25/23 09:22 Pulse Oximetry 97 10/25/23 09:22 Lab/Test Results Lab/Test Results: Laboratory Tests Range/Units 10/25/23 09:35 WBC (4.4-10.8) 10^3/uL 6.48 RBC (4.36-5.78) 10^6/uL 5.55 Hgb (13.5-17.5) g/dL 16.3 Hct (40.0-50.0) % 47.2 MCV (80-95) fL 85 MCH (27.0-33.0) pg 29.4 MCHC (32.0-36.0) % 34.5 RDW (11.8-14.1) % 11.9 Plt Count (130-400) 10^3/uL 260 MPV (8.0-11.0) fL 9.3 Immature Gran % 0.2 Neutrophils % 62.9 Lymphocytes % 26.9 Monocytes % 8.2 Eosinophils % 1.2 Basophils % 0.6 Nucleated RBC % (0.0-0.3) % 0.0 Absolute Neutrophils (1.2-6.7) 10^3/uL 4.08 Absolute Lymphocytes (1.2-3.4) 10^3/uL 1.74 Absolute Monocytes (0.1-0.8) 10^3/uL 0.53 Absolute Eosinophils (0.0-0.7) 10^3/uL 0.08 Absolute Basophils (0.0-0.2) 10^3/uL 0.04 VBG Lactate (0.6-1.4) mmol/L 1.4 Medical Decision Making 1005??63-year-old male with history of hyperlipidemia, hypertension, diverticulosis, prior diverticulitis with perforation, here with intermittent, waxing and waning abdominal discomfort with associated nausea for the past 1 week, today had brief episode of dizziness with standing, now resolved. Patient is hypertensive. He saturating well in no respiratory distress. He does have mild epigastric abdominal tenderness on exam with no peritoneal findings. Considered atypical presentation for ACS. Screening EKG was reviewed and interpreted by me: Please report, sinus rhythm 74 bpm, normal axis, no STEMI, nondiagnostic. Consider biliary disease versus pancreatitis. I will check labs including LFTs and lipase. Patient is dehydrated on examination. I will give IV fluid bolus. Plan to treat nausea with ondansetron IV and will also give Pepcid IV. -- Patient was reassessed and continued to have nausea despite initial improvement with Zofran. Reglan 10 mg IV was administered. 1220 --Labs reviewed and nondiagnostic. I spoke with the patient who notes continued concern. CT of the abdomen pelvis was obtained to assess for acute surgical pathology including diverticulitis with perforation. CT of the abdomen pelvis was interpreted by radiology: Acute mild sigmoid diverticulitis. No perforation. Given prior history I will elect to treat with Augmentin. Initial dose was provided here. Usual customary discharge instructions reviewed the patient. Encouraged to follow-up with his primary care physician. Lab Data Lab results reviewed: Yes I reviewed the patient's lab results. Labs: Laboratory Tests Range/Units 10/25/23 10/25/23 09:35 09:50 WBC (4.4-10.8) 10^3/uL 6.48 RBC (4.36-5.78) 10^6/uL 5.55 Hgb (13.5-17.5) g/dL 16.3 Hct (40.0-50.0) % 47.2 MCV (80-95) fL 85 MCH (27.0-33.0) pg 29.4 MCHC (32.0-36.0) % 34.5 RDW (11.8-14.1) % 11.9 Plt Count (130-400) 10^3/uL 260 MPV (8.0-11.0) fL 9.3 Immature Gran % 0.2 Neutrophils % 62.9 Lymphocytes % 26.9 Monocytes % 8.2 Eosinophils % 1.2 Basophils % 0.6 Nucleated RBC % (0.0-0.3) % 0.0 Absolute Neutrophils (1.2-6.7) 10^3/uL 4.08 Absolute Lymphocytes (1.2-3.4) 10^3/uL 1.74 Absolute Monocytes (0.1-0.8) 10^3/uL 0.53 Absolute Eosinophils (0.0-0.7) 10^3/uL 0.08 Absolute Basophils (0.0-0.2) 10^3/uL 0.04 VBG Lactate (0.6-1.4) mmol/L 1.4 Sodium (136-145) mmol/L 139 Potassium (3.5-5.1) mmol/L 4.0 Chloride (98-107) mmol/L 101 Carbon Dioxide (21.0-32.0) mmol/L 28.4 Anion Gap (3-11) mmol/L 9.6 BUN (7-18) mg/dL 14 Creatinine (0.70-1.30) mg/dL 1.4 H Est GFR (CKD-EPI 2020) (mL/min/1.73m2) 55.78 Glucose (74-106) mg/dL 144 H Calcium (8.5-10.1) mg/dL 9.2 Magnesium (1.8-2.4) mg/dL 2.1 Total Bilirubin (0.2-1.0) mg/dL 0.5 AST (15-37) U/L 19 ALT (16-63) U/L 22 Alkaline Phosphatase (46-116) U/L 92 Troponin I (< or =60) ng/L < 50 Cancelled Total Protein (6.4-8.2) g/dL 8.6 H Albumin (3.4-5.0) g/dL 4.3 Lipase (16-77) U/L 55 Quality:SDOH Health Related Social Needs: No Data to Display PFSH All Active Problems (Updated 10/25/23 @ 12:22 by Mark Pat MD) Acute diverticulitis (Acute) 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 Essential hypertension Heart disease CABG Myocardial infarction Brother Essential hypertension Heart disease Hyperlipidemia Brother No problems noted. Grandfather No problems noted. Grandfather No problems noted. Grandmother No problems noted. Grandmother No problems noted. Brother No problems noted. Social History Smoking/Tobacco Use Status: Never Smoking risk assessment performed?: Yes Alcohol Intake: current Alcohol Intake frequency: holidays/special occasions only Drug use: Rarely Substance use type: marijuana Details: Edibles, no alcohol for ~ 1 month Current gender identity: male Do you feel safe in your relationship?: Yes
[2023-10-25] MEDS: Famotidine 20 MG/2 ML VIAL IVP (10:00)
[2023-10-25 10:08] LABS: ALT 22 U/L (16-63); AST 19 U/L (15-37); Albumin 4.3 g/dL (3.4-5.0); Alkaline Phosphatase 92 U/L (46-116); Anion Gap 9.6 mmol/L (3-11); BUN 14 mg/dL (7-18); Bilirubin, Total 0.5 mg/dL (0.2-1.0); CO2 28.4 mmol/L (21.0-32.0); CREATININE 1.4 mg/dL (0.70-1.30); Calcium 9.2 mg/dL (8.5-10.1); Chloride 101 mmol/L (98-107); Estimated GFR 55.78 (mL/min/1.73m2); Glucose 144 mg/dL (74-106); Lipase 55 U/L (16-77); Magnesium 2.1 mg/dL (1.8-2.4); Sodium 139 mmol/L (136-145); Total Protein 8.6 g/dL (6.4-8.2); Troponin I < 50 ng/L (< or =60)
[2023-10-25] MEDS: Metoclopramide 10 MG/2 ML VIAL IVP (10:35)
--- NOTE | 2023-10-25 11:15 | DI.CT_ITS ---
Exam(s) CT ABDOMEN PELVIS W EXAM: CT ABDOMEN PELVIS W CLINICAL HISTORY: upper abd pain, nausea. TECHNIQUE: Imaging Protocol: Axial computed tomography images with coronal and sagittal reformatted images were created and reviewed CONTRAST MATERIAL: Intravenous: Omnipaque 350 Contrast volume:100 ml Oral: / no COMPARISON: CT RENAL COLIC WO CONTRAST from 05/29/[address] ABDOMEN PELVIS W from 01/19/2023 FINDINGS: ABDOMEN and PELVIS: Lung Bases: No acute findings. Liver: Normal density. No measurable mass. Gallbladder and biliary tract: No radiodense calculus or dilation. Pancreas: Normal density. No abnormal calcifications or inflammatory process. No evidence of mass. Spleen: Normal. Kidneys: Normal size, contour and axis. Bilateral nephrolithiasis. No obstructive uropathy. No susp icious masses seen. Adrenal glands: No masses seen. Vasculature: Abdominal aorta non-dilated. Atherosclerotic changes. Soft tissues: Unremarkable. Bladder: No gross wall thickening. No calculi.No focal mass. Bowel: No obstruction. Diverticulosis from mid descending through sigmoid region. Mild diverticuli tis proximal sigmoid. Appendix normal. Peritoneal cavity: No ascites. No focal collection. No free air. Bones: Unremarkable for age. Reproductive organs: Prostate mildly enlarged, impressing on the base of the bladder.. Lymph nodes: Unremarkable. IMPRESSION:: Mild sigmoid diverticulitis. Findings called to Dr. Pat of the emergency department. RADIATION DOSE DELIVERED: Total DLP DATA REPOSITORY: All CT scans at this facility are submitted to the National Radiology Data Registry (NRDR) Dose Index Registry (DIR) with the [employer] (ACR). RADIATION OPTIMIZATION: All CT scans at this facility use at least one of these dose optimization te chniques: automated exposure control; mA and/or kV adjustment per patient size (includes targeted exa ms where dose is matched to clinical indication); or iterative reconstruction.
[2023-10-25] MEDS: Omnipaque 350 MG/ML 50 ML BTL IJ (11:59)
[2023-10-25] MEDS: Omnipaque 350 MG/ML 500 ML BTL-Imaging package 50 ML IJ (12:00)
[2023-10-25] MEDS: Normal Saline - Diluent 50 ML VIAL IJ (12:02)
[2023-10-25] MEDS: Amoxicillin 875/Clav. 125 TAB PO (12:31)
== END 2023-10-25 12:38 | disposition home or self-care (01) ==
PROVIDERS: Emergency Provider Student in an Organized Health Care Education/Training Program; PCP Family Medicine
DX: K57.32 Diverticulitis of large intestine without perforation or abscess without bleeding; E78.5 Hyperlipidemia, unspecified; I10 Essential (primary) hypertension; Z87.19 Personal history of other diseases of the digestive system; E86.0 Dehydration
CPT/HCPCS: 80053; 83690; 93005; 96374; 96375; 99285; 74177; 83605; 83735; 84484; 85025; 93010; 99284; J2405; J2765; Q9967

== ENCOUNTER → 2024-02-18 14:57 | Outpatient (BNVA) | payer MEDICARE, BC, SELFPAY | PROVIDERS: PCP Family Medicine; Referring Provider Physician Assistant; Visit Provider Nurse Practitioner Adult Health | DX: G56.01 Carpal tunnel syndrome, right upper limb (principal) | CPT/HCPCS: 95909; 99215 ==

== ENCOUNTER → 2024-03-26 09:53 | Outpatient (BNVA) | payer MEDICARE, BC, SELFPAY | PROVIDERS: PCP Nurse Practitioner Family; Referring Provider Nurse Practitioner Family; Visit Provider Student in an Organized Health Care Education/Training Program | DX: M19.031 Primary osteoarthritis, right wrist (principal); G56.01 Carpal tunnel syndrome, right upper limb | CPT/HCPCS: 99213 ==

== ENCOUNTER → 2024-05-28 11:06 | Outpatient (BNVA) | payer MEDICARE, BC, SELFPAY | PROVIDERS: PCP Nurse Practitioner Family; Referring Provider Nurse Practitioner Family; Visit Provider Student in an Organized Health Care Education/Training Program | DX: M19.031 Primary osteoarthritis, right wrist (principal) | CPT/HCPCS: 20606; J1010 ==